=== PATIENT | male | born 1955 | race Caucasian/White ===

== ENCOUNTER 2021-12-08 11:05 | Emergency (ER) | payer OTHER ==
[~2021-12-08] VITALS: Ht 175.3 cm; Wt 65.8 kg
[~2021-12-08 11:05] MED LIST: AMIO200 PO; ASPI81CH; ASPI81CH PO; Crestor20 MG; DOCU100 PO; FURO40 PO; HYDR1TAB94 PO; Humalog100 UNIT/3; INSDET100; KELP150 MC1 PO; LEVO750 PO; METF500 PO; METO25ER PO; POTCHL20ER PO; Pravachol40 MG PO; ROSU5; SACC250C PO; UNKNOWN B/P MED
[2021-12-08 12:14] LABS: BASOPHILS ABSOLUTE AUTO 0.03 K/mm3 (0.00-0.23); BASOPHILS PERCENT AUTO 0 % (0-2); EOSINOPHILS ABSOLUTE AUTO 0.04 K/mm3 (0.00-0.68); EOSINOPHILS PERCENT AUTO 0 % (0-6); Hematocrit 46.7 % (37.0-53.0); Hemoglobin 16.4 g/dL (13.5-17.5); IMMATURE GRAN ABSOLUTE AUTO 0.03 K/mm3 (0.00-0.10); IMMATURE GRAN PERCENT AUTO 0 % (0-1); LYMPHOCYTES ABSOLUTE AUTO 1.71 K/mm3 (0.84-5.20); LYMPHOCYTES PERCENT AUTO 14 % (21-46); MONOCYTES PERCENT AUTO 6 % (4-13); Mean Corpuscular HGB 29.7 pg (26.0-34.0); Mean Corpuscular HGB Conc 35.1 g/dL (31.5-36.5); Mean Corpuscular Volume 85 fL (80-100); Mean Platelet Volume 9.5 fL (9.1-12.4); NEUTROPHILS ABSOLUTE AUTO 9.38 K/mm3 (1.96-9.15); NEUTROPHILS PERCENT AUTO 79 % (41-73); Platelet Count 207 K/mm3 (150-400); RDW Standard Deviation 37.3 fL (35.1-46.3); Red Blood Cell Count 5.52 M/mm3 (4.30-5.90); White Blood Cell Count 11.89 K/mm3 (4.00-11.30)
[2021-12-08 12:35] LABS: Alanine Aminotransfer (ALT/SGP 18 U/L (12-78); Albumin, Blood 3.7 g/dL (3.4-5.0); Alk Phos 98 U/L (50-136); Anion Gap 8 mmol/L (6-16); Aspartate Aminotrans (AST/SGOT 9 U/L (12-37); Bilirubin, Total 0.9 mg/dL (0.1-1.0); Blood Urea Nitrogen 26 mg/dL (8-24); Bun/Creatinine Ratio 13.7 (12.0-20.0); CO2, Blood 28 mmol/L (21-32); Calcium, Blood 9.3 mg/dL (8.5-10.1); Chloride, Blood 98 mmol/L (98-108); Globulin, Blood 3.7 g/dL (2.2-4.0); Glomerular Filtration Rate 36 (60-); Glucose, Blood 441 mg/dL (70-99); Potassium, Blood 4.8 mmol/L (3.5-5.5); Sodium, Blood 134 mmol/L (136-145); Total Protein, Blood 7.4 g/dL (6.4-8.2); Troponin I <0.015 ng/mL (0.000-0.040)
[2021-12-08 15:13] LABS: Source, Urine Clean Catch
[2021-12-08 15:16] LABS: Appearance, Urine Clear (Clear); Bilirubin, Urine Neg (Neg); Blood, Urine 2+ (Neg); Color, Urine Yellow (P-Yellow); Glucose Qualitative, Urine 4+ (Neg); Ketones, Urine 3+ (Neg); Leukocyte Esterase, Urine Neg (Neg); Nitrite, Urine Neg (Neg); Protein, Urine Neg (Neg); Specific Gravity, Urine 1.015 (1.003-1.022); Urobilinogen, Urine NORM (Normal)
[2021-12-08 15:27] LABS: White Blood Cells, Urine Rare /hpf (0-5)
[2021-12-08 15:28] LABS: Bacteria Rare /hpf; Squamous Epithelial Cells Not Seen /hpf (Few)
[2021-12-08 16:20] LABS: Bun/Creatinine Ratio 15.7 (12.0-20.0); Calcium, Blood 8.7 mg/dL (8.5-10.1); Creatinine, Blood 1.53 mg/dL (0.60-1.20); Potassium, Blood 4.5 mmol/L (3.5-5.5)
[2021-12-08] MEDS ORDERED: Glucotrol Xl5 MG PO (17:02)
== END 2021-12-08 18:37 | disposition home or self-care (01) ==
LOC: ER 11:05
PROVIDERS: Physician Assistant
DX: N17.9 Acute kidney failure, unspecified (principal); R33.9 Retention of urine, unspecified; E11.9 Type 2 diabetes mellitus without complications; Z79.4 Long term (current) use of insulin
CPT/HCPCS: 36415; 51702; 71046; 74176; 80048; 80053; 81001; 83690; 83880; 84484; 85025; 93005; 93010; J2405; J7120

== ENCOUNTER 2022-01-16 22:08 | Emergency (ER) | payer OTHER ==
[~2022-01-16] VITALS: Ht 172.7 cm; Wt 65.8 kg
[~2022-01-16 22:08] MED LIST changes: +CEPH500 PO; +GLIP5ER PO; +Glucotrol Xl5 MG PO
[2022-01-16] MEDS ORDERED: TAMSULOSIN HCL0.4 M1 PO (22:18)
[2022-01-16 23:17] LABS: Source, Urine Clean Catch
[2022-01-16 23:19] LABS: Bilirubin, Urine Neg (Neg); Blood, Urine 1+ (Neg); Glucose Qualitative, Urine 4+ (Neg); Ketones, Urine Neg (Neg); Leukocyte Esterase, Urine 3+ (Neg); Nitrite, Urine Neg (Neg); Protein, Urine 1+ (Neg); Specific Gravity, Urine 1.015 (1.003-1.022); Urobilinogen, Urine NORM (Normal)
[2022-01-16 23:28] LABS: Appearance, Urine Hazy (Clear); Color, Urine Yellow (P-Yellow); Red Blood Cells, Urine 0-2 /hpf (0-2); Squamous Epithelial Cells Not Seen /hpf (Few); White Blood Cells, Urine TNTC /hpf (0-5)
[2022-01-16 23:29] LABS: Bacteria Few /hpf; Yeast/Fungi Urine Few /hpf
[2022-01-16] MEDS ORDERED: Diflucan200 MG PO (23:57)
== END 2022-01-17 00:20 | disposition home or self-care (01) ==
LOC: ER 22:08
PROVIDERS: Physician Assistant
DX: T83.098A Other mechanical complication of other urinary catheter, initial encounter (principal); B37.41 Candidal cystitis and urethritis; R33.9 Retention of urine, unspecified; E11.9 Type 2 diabetes mellitus without complications; Z79.84 Long term (current) use of oral hypoglycemic drugs
CPT/HCPCS: 81001; 87086; 87106; 99283; A9270

== ENCOUNTER 2022-03-20 16:04 | Emergency (ER) | payer OTHER ==
[~2022-03-20] VITALS: Ht 170.2 cm; Wt 65.8 kg
[~2022-03-20 16:04] MED LIST changes: +Diflucan200 MG PO; +TAMSULOSIN HCL0.4 M1 PO
[2022-03-20 17:31] LABS: Source, Urine Foley catheter
[2022-03-20 17:38] LABS: Appearance, Urine Hazy (Clear); Bilirubin, Urine Neg (Neg); Blood, Urine 1+ (Neg); Color, Urine Yellow (P-Yellow); Glucose Qualitative, Urine 4+ (Neg); Ketones, Urine Neg (Neg); Leukocyte Esterase, Urine 3+ (Neg); Nitrite, Urine Pos (Neg); Protein, Urine 1+ (Neg); Urobilinogen, Urine NORM (Normal)
[2022-03-20] MEDS ORDERED: CEPH500 PO (18:13)
[2022-03-20 18:16] LABS: Bacteria Many /hpf; Red Blood Cells, Urine 0-2 /hpf (0-2); Squamous Epithelial Cells Not Seen /hpf (Few); White Blood Cells, Urine 50-100 /hpf (0-5); Yeast/Fungi Urine Many /hpf
[2022-03-20] MEDS ORDERED: Cipro250 MG PO (18:26)
[2022-03-20] MEDS ORDERED: Diflucan100 MG PO (18:45)
== END 2022-03-20 19:23 | disposition home or self-care (01) ==
LOC: ER 16:04
PROVIDERS: Physician Assistant
DX: T83.098A Other mechanical complication of other urinary catheter, initial encounter (principal); E11.9 Type 2 diabetes mellitus without complications; Z79.84 Long term (current) use of oral hypoglycemic drugs; Z79.899 Other long term (current) drug therapy; Z95.1 Presence of aortocoronary bypass graft; Y83.9 Surgical procedure, unspecified as the cause of abnormal reaction of the patient, or of later complication, without mention of misadventure at the time of the procedure
CPT/HCPCS: 51702; 51798; 81001; A9270

== ENCOUNTER 2022-04-29 16:50 | Emergency (ER) | payer OTHER ==
[~2022-04-29] VITALS: Ht 170.2 cm; Wt 67.1 kg
[~2022-04-29 16:50] MED LIST changes: +Cipro250 MG PO; +Diflucan100 MG PO
== END 2022-04-29 20:36 | disposition home or self-care (01) ==
LOC: ER 16:50
DX: T83.091A Other mechanical complication of indwelling urethral catheter, initial encounter (principal); E11.9 Type 2 diabetes mellitus without complications; Y84.6 Urinary catheterization as the cause of abnormal reaction of the patient, or of later complication, without mention of misadventure at the time of the procedure; Z79.899 Other long term (current) drug therapy; Z95.1 Presence of aortocoronary bypass graft
CPT/HCPCS: 51700; 99283-25

== ENCOUNTER 2022-05-04 03:02 | Emergency (ER) | payer OTHER ==
[~2022-05-04] VITALS: Ht 170.2 cm; Wt 67.1 kg
[2022-05-04 06:39] LABS: Source, Urine Foley catheter
[2022-05-04 06:53] LABS: Appearance, Urine Cloudy (Clear); Bilirubin, Urine Neg (Neg); Blood, Urine 3+ (Neg); Color, Urine Yellow (P-Yellow); Glucose Qualitative, Urine 4+ (Neg); Ketones, Urine Neg (Neg); Leukocyte Esterase, Urine 3+ (Neg); Nitrite, Urine Neg (Neg); Protein, Urine 3+ (Neg); Urobilinogen, Urine NORM (Normal)
[2022-05-04 07:02] LABS: Bacteria Few /hpf; Red Blood Cells, Urine TNTC /hpf (0-2); Squamous Epithelial Cells Rare /hpf (Few); White Blood Cells, Urine TNTC /hpf (0-5)
[2022-05-04] MEDS ORDERED: CEFP200 PO (07:11)
== END 2022-05-04 07:34 | disposition home or self-care (01) ==
LOC: ER 03:02
PROVIDERS: Emergency Medicine
DX: T83.091A Other mechanical complication of indwelling urethral catheter, initial encounter (principal); N39.0 Urinary tract infection, site not specified; E11.9 Type 2 diabetes mellitus without complications; Z79.899 Other long term (current) drug therapy; Z79.84 Long term (current) use of oral hypoglycemic drugs; Z95.1 Presence of aortocoronary bypass graft; Y84.8 Other medical procedures as the cause of abnormal reaction of the patient, or of later complication, without mention of misadventure at the time of the procedure
CPT/HCPCS: 51702; 51798; 81001

== ENCOUNTER 2022-05-10 17:02 | Emergency (ER) | payer OTHER ==
[~2022-05-10] VITALS: Ht 170.2 cm; Wt 67.1 kg
[~2022-05-10 17:02] MED LIST changes: +CEFP200 PO
== END 2022-05-10 20:49 | disposition home or self-care (01) ==
LOC: ER 17:02
DX: R33.9 Retention of urine, unspecified (principal); N39.0 Urinary tract infection, site not specified; E11.9 Type 2 diabetes mellitus without complications; Z79.84 Long term (current) use of oral hypoglycemic drugs; Z79.899 Other long term (current) drug therapy; Z95.1 Presence of aortocoronary bypass graft
CPT/HCPCS: 51798

== ENCOUNTER 2022-05-16 17:34 | Emergency (ER) | payer OTHER ==
[~2022-05-16] VITALS: Ht 170.2 cm; Wt 67.1 kg
[2022-05-16] MEDS ORDERED: GLIP5 PO (18:44)
[2022-05-16 18:56] LABS: Source, Urine Foley catheter
[2022-05-16 18:59] LABS: Appearance, Urine Turbid (Clear); Bilirubin, Urine Neg (Neg); Blood, Urine 3+ (Neg); Color, Urine Yellow (P-Yellow); Glucose Qualitative, Urine 4+ (Neg); Ketones, Urine 1+ (Neg); Leukocyte Esterase, Urine 3+ (Neg); Nitrite, Urine Neg (Neg); Protein, Urine 3+ (Neg); Urobilinogen, Urine NORM (Normal)
[2022-05-16 19:08] LABS: Bacteria Mod /hpf; Red Blood Cells, Urine TNTC /hpf (0-2); Squamous Epithelial Cells Rare /hpf (Few); White Blood Cells, Urine TNTC /hpf (0-5)
[2022-05-16 19:09] LABS: Yeast/Fungi Urine Many /hpf
[2022-05-16 19:10] LABS: Hyaline Casts 0-2 /lpf (0-2); RBC Cast 0-2 /lpf (0)
== END 2022-05-16 18:50 | disposition home or self-care (01) ==
LOC: ER 17:34
PROVIDERS: Emergency Medicine
DX: T83.091A Other mechanical complication of indwelling urethral catheter, initial encounter (principal); Y73.8 Miscellaneous gastroenterology and urology devices associated with adverse incidents, not elsewhere classified; R33.8 Other retention of urine; E11.9 Type 2 diabetes mellitus without complications; Z79.84 Long term (current) use of oral hypoglycemic drugs; Z79.899 Other long term (current) drug therapy
CPT/HCPCS: 81001

== ENCOUNTER 2022-05-21 21:09 | Emergency (ER) | payer OTHER ==
[~2022-05-21] VITALS: Ht 170.2 cm; Wt 67.1 kg
[~2022-05-21 21:09] MED LIST changes: +GLIP5 PO
[2022-05-21 22:39] LABS: Source, Urine Foley catheter
[2022-05-21 22:42] LABS: Bilirubin, Urine Neg (Neg); Blood, Urine 2+ (Neg); Glucose Qualitative, Urine 4+ (Neg); Ketones, Urine Neg (Neg); Leukocyte Esterase, Urine 3+ (Neg); Nitrite, Urine Neg (Neg); Protein, Urine 1+ (Neg); Specific Gravity, Urine 1.015 (1.003-1.022); Urobilinogen, Urine NORM (Normal)
[2022-05-21 22:52] LABS: Appearance, Urine Hazy (Clear); Color, Urine Yellow (P-Yellow); Squamous Epithelial Cells Not Seen /hpf (Few); White Blood Cells, Urine TNTC /hpf (0-5)
[2022-05-21 22:53] LABS: Bacteria Few /hpf; Yeast/Fungi Urine Few /hpf
== END 2022-05-21 23:52 | disposition home or self-care (01) ==
LOC: ER 21:09
PROVIDERS: Student in an Organized Health Care Education/Training Program
DX: T83.091A Other mechanical complication of indwelling urethral catheter, initial encounter (principal); E11.9 Type 2 diabetes mellitus without complications; Z79.899 Other long term (current) drug therapy; Z79.84 Long term (current) use of oral hypoglycemic drugs; Z95.1 Presence of aortocoronary bypass graft; Y73.1 Therapeutic (nonsurgical) and rehabilitative gastroenterology and urology devices associated with adverse incidents
CPT/HCPCS: 51702; 51798; 81001

== ENCOUNTER 2022-11-28 03:08 | Day surgery (SDC) | payer OTHER | END 2022-11-28 23:06 | disposition home or self-care (01) | LOC: WOUND 03:08 | DX: E11.621 Type 2 diabetes mellitus with foot ulcer (principal); L97.412 Non-pressure chronic ulcer of right heel and midfoot with fat layer exposed; L97.512 Non-pressure chronic ulcer of other part of right foot with fat layer exposed; E11.21 Type 2 diabetes mellitus with diabetic nephropathy; E11.51 Type 2 diabetes mellitus with diabetic peripheral angiopathy without gangrene; E11.59 Type 2 diabetes mellitus with other circulatory complications; I25.10 Atherosclerotic heart disease of native coronary artery without angina pectoris ==

== ENCOUNTER 2023-01-09 00:57 | Day surgery (SDC) | payer OTHER | END 2023-01-09 23:37 | disposition home or self-care (01) | LOC: WOUND 00:57 | DX: E11.622 Type 2 diabetes mellitus with other skin ulcer (principal); L97.922 Non-pressure chronic ulcer of unspecified part of left lower leg with fat layer exposed; E11.621 Type 2 diabetes mellitus with foot ulcer; E11.59 Type 2 diabetes mellitus with other circulatory complications; E11.51 Type 2 diabetes mellitus with diabetic peripheral angiopathy without gangrene; E11.21 Type 2 diabetes mellitus with diabetic nephropathy; I25.10 Atherosclerotic heart disease of native coronary artery without angina pectoris | CPT/HCPCS: G0463 ==

== ENCOUNTER 2023-01-30 00:23 | Day surgery (SDC) | payer OTHER | END 2023-01-30 23:11 | disposition home or self-care (01) | LOC: WOUND 00:23 | DX: E11.621 Type 2 diabetes mellitus with foot ulcer (principal); L97.412 Non-pressure chronic ulcer of right heel and midfoot with fat layer exposed; E11.622 Type 2 diabetes mellitus with other skin ulcer; E11.59 Type 2 diabetes mellitus with other circulatory complications; E11.51 Type 2 diabetes mellitus with diabetic peripheral angiopathy without gangrene; E11.21 Type 2 diabetes mellitus with diabetic nephropathy; I25.10 Atherosclerotic heart disease of native coronary artery without angina pectoris | CPT/HCPCS: A9270; G0463 ==

== ENCOUNTER 2023-02-13 00:34 | Day surgery (SDC) | payer OTHER | END 2023-02-13 22:42 | disposition home or self-care (01) | LOC: WOUND 00:34 | DX: E11.621 Type 2 diabetes mellitus with foot ulcer (principal); L97.412 Non-pressure chronic ulcer of right heel and midfoot with fat layer exposed; E11.622 Type 2 diabetes mellitus with other skin ulcer; E11.59 Type 2 diabetes mellitus with other circulatory complications; E11.51 Type 2 diabetes mellitus with diabetic peripheral angiopathy without gangrene; E11.21 Type 2 diabetes mellitus with diabetic nephropathy; E11.40 Type 2 diabetes mellitus with diabetic neuropathy, unspecified; I25.10 Atherosclerotic heart disease of native coronary artery without angina pectoris | CPT/HCPCS: G0463 ==

== ENCOUNTER 2023-02-22 09:16 | Day surgery (SDC) | payer OTHER | END 2023-02-22 22:49 | disposition home or self-care (01) | LOC: WOUND 09:16 | DX: E11.621 Type 2 diabetes mellitus with foot ulcer (principal); I25.10 Atherosclerotic heart disease of native coronary artery without angina pectoris; L97.512 Non-pressure chronic ulcer of other part of right foot with fat layer exposed; E11.51 Type 2 diabetes mellitus with diabetic peripheral angiopathy without gangrene; E11.40 Type 2 diabetes mellitus with diabetic neuropathy, unspecified | CPT/HCPCS: G0463 ==

== ENCOUNTER 2023-02-28 02:08 | Day surgery (SDC) | payer OTHER | END 2023-02-28 22:47 | disposition home or self-care (01) | LOC: WOUND 02:08 | DX: E11.621 Type 2 diabetes mellitus with foot ulcer (principal); E11.622 Type 2 diabetes mellitus with other skin ulcer; E11.40 Type 2 diabetes mellitus with diabetic neuropathy, unspecified; E11.51 Type 2 diabetes mellitus with diabetic peripheral angiopathy without gangrene; L97.412 Non-pressure chronic ulcer of right heel and midfoot with fat layer exposed ==

== ENCOUNTER 2023-03-02 01:06 | Day surgery (SDC) | payer OTHER | END 2023-03-02 22:41 | disposition home or self-care (01) | LOC: WOUND 01:06 | DX: S91.301A Unspecified open wound, right foot, initial encounter (principal); X58.XXXA Exposure to other specified factors, initial encounter; E11.622 Type 2 diabetes mellitus with other skin ulcer; E11.621 Type 2 diabetes mellitus with foot ulcer; E11.59 Type 2 diabetes mellitus with other circulatory complications; E11.51 Type 2 diabetes mellitus with diabetic peripheral angiopathy without gangrene; E11.21 Type 2 diabetes mellitus with diabetic nephropathy; I25.10 Atherosclerotic heart disease of native coronary artery without angina pectoris ==

== ENCOUNTER 2023-03-09 02:48 | Day surgery (SDC) | payer OTHER | END 2023-03-09 23:20 | disposition home or self-care (01) | LOC: WOUND 02:48 | DX: E11.621 Type 2 diabetes mellitus with foot ulcer (principal); L97.412 Non-pressure chronic ulcer of right heel and midfoot with fat layer exposed; E11.622 Type 2 diabetes mellitus with other skin ulcer; E11.59 Type 2 diabetes mellitus with other circulatory complications; E11.21 Type 2 diabetes mellitus with diabetic nephropathy; E11.51 Type 2 diabetes mellitus with diabetic peripheral angiopathy without gangrene; I25.10 Atherosclerotic heart disease of native coronary artery without angina pectoris ==

== ENCOUNTER 2023-03-15 03:03 | Day surgery (SDC) | payer OTHER | END 2023-03-15 22:41 | disposition home or self-care (01) | LOC: WOUND 03:03 | DX: S91.302A Unspecified open wound, left foot, initial encounter (principal); X58.XXXA Exposure to other specified factors, initial encounter; E11.621 Type 2 diabetes mellitus with foot ulcer; E11.622 Type 2 diabetes mellitus with other skin ulcer; E11.59 Type 2 diabetes mellitus with other circulatory complications; E11.21 Type 2 diabetes mellitus with diabetic nephropathy; E11.51 Type 2 diabetes mellitus with diabetic peripheral angiopathy without gangrene; I25.10 Atherosclerotic heart disease of native coronary artery without angina pectoris ==

== ENCOUNTER 2023-03-20 02:06 | Day surgery (SDC) | payer OTHER | END 2023-03-20 22:50 | disposition home or self-care (01) | LOC: WOUND 02:06 | DX: S99.821A Other specified injuries of right foot, initial encounter (principal); E11.621 Type 2 diabetes mellitus with foot ulcer; E11.622 Type 2 diabetes mellitus with other skin ulcer; E11.59 Type 2 diabetes mellitus with other circulatory complications; E11.21 Type 2 diabetes mellitus with diabetic nephropathy; I73.9 Peripheral vascular disease, unspecified; X58.XXXA Exposure to other specified factors, initial encounter | CPT/HCPCS: G0463 ==

== ENCOUNTER 2023-04-03 01:07 | Day surgery (SDC) | payer OTHER ==
[~2023-04-03 01:07] MED LIST changes: +ASPIRIN REGIMEN81 MG PO; +ATOR40TA PO; +FUROSEMIDE20 MG PO; +METOPROLOL SUCC25 MG PO; +Potassium Chlo20 ME1 PO
== END 2023-04-03 22:52 | disposition home or self-care (01) ==
LOC: WOUND 01:07
DX: E11.621 Type 2 diabetes mellitus with foot ulcer (principal); L97.512 Non-pressure chronic ulcer of other part of right foot with fat layer exposed; E11.622 Type 2 diabetes mellitus with other skin ulcer; E11.59 Type 2 diabetes mellitus with other circulatory complications; E11.21 Type 2 diabetes mellitus with diabetic nephropathy; I73.9 Peripheral vascular disease, unspecified
CPT/HCPCS: G0463

== ENCOUNTER 2023-04-12 03:50 | Day surgery (SDC) | payer OTHER | END 2023-04-12 22:57 | disposition home or self-care (01) | LOC: WOUND 03:50 | DX: E11.621 Type 2 diabetes mellitus with foot ulcer (principal); L97.512 Non-pressure chronic ulcer of other part of right foot with fat layer exposed; E11.622 Type 2 diabetes mellitus with other skin ulcer; E11.59 Type 2 diabetes mellitus with other circulatory complications; E11.21 Type 2 diabetes mellitus with diabetic nephropathy; E11.51 Type 2 diabetes mellitus with diabetic peripheral angiopathy without gangrene; I25.10 Atherosclerotic heart disease of native coronary artery without angina pectoris | CPT/HCPCS: G0463 ==

== ENCOUNTER 2023-04-19 03:21 | Day surgery (SDC) | payer OTHER | END 2023-04-19 22:45 | disposition home or self-care (01) | LOC: WOUND 03:21 | DX: E11.621 Type 2 diabetes mellitus with foot ulcer (principal); L97.512 Non-pressure chronic ulcer of other part of right foot with fat layer exposed; E11.40 Type 2 diabetes mellitus with diabetic neuropathy, unspecified; I25.10 Atherosclerotic heart disease of native coronary artery without angina pectoris; E11.51 Type 2 diabetes mellitus with diabetic peripheral angiopathy without gangrene; E11.21 Type 2 diabetes mellitus with diabetic nephropathy ==

== ENCOUNTER 2023-04-26 03:13 | Day surgery (SDC) | payer OTHER | END 2023-04-26 22:53 | disposition home or self-care (01) | LOC: WOUND 03:13 | DX: E11.621 Type 2 diabetes mellitus with foot ulcer (principal); E11.622 Type 2 diabetes mellitus with other skin ulcer; E11.59 Type 2 diabetes mellitus with other circulatory complications; E11.21 Type 2 diabetes mellitus with diabetic nephropathy; E11.51 Type 2 diabetes mellitus with diabetic peripheral angiopathy without gangrene; I25.10 Atherosclerotic heart disease of native coronary artery without angina pectoris | CPT/HCPCS: G0463 ==

== ENCOUNTER → 2023-09-25 | Outpatient (CLI) | payer OTHER | LOC: LAB 10:30 → LAB SHORT 10:30 | DX: R33.9 Retention of urine, unspecified (principal) | CPT/HCPCS: 87086; 87106 ==

== ENCOUNTER 2024-07-31 14:23 | Emergency (ER) | payer OTHER ==
[~2024-07-31] VITALS: Ht 170.2 cm; Wt 69.4 kg
[~2024-07-31 14:23] MED LIST changes: -ASPIRIN REGIMEN81 MG PO; +MULTIPLE VITAM1 EACH PO; +POTASSIUM CHLORIDE PO; -Potassium Chlo20 ME1 PO
[2024-07-31] MEDS ORDERED: Miconazole Nitrate 2% 85 GM PWD TOP ONE (15:30)
[2024-07-31] MEDS ORDERED: NYSTOP15 GM TOP (15:30)
[2024-07-31 16:18] VITALS: BP 131/77
== END 2024-07-31 16:19 | disposition home or self-care (01) ==
LOC: ER 14:23
DX: L98.491 Non-pressure chronic ulcer of skin of other sites limited to breakdown of skin (principal); E11.9 Type 2 diabetes mellitus without complications; Z72.821 Inadequate sleep hygiene; Z79.82 Long term (current) use of aspirin; Z79.899 Other long term (current) drug therapy
CPT/HCPCS: 99283; A9270

== ENCOUNTER → 2024-08-21 | Outpatient (CLI) | payer OTHER ==
[~2024-08-21] MED LIST changes: +NYSTOP15 GM TOP
== END ==
LOC: LAB SHORT 18:59 → LAB 18:59
DX: E11.621 Type 2 diabetes mellitus with foot ulcer (principal)
CPT/HCPCS: 87070; 87077; 87186; 87205

== ENCOUNTER 2024-08-26 02:40 | Day surgery (SDC) | payer OTHER | END 2024-08-26 23:00 | LOC: WOUND 02:40 | DX: E11.621 Type 2 diabetes mellitus with foot ulcer (principal); L97.512 Non-pressure chronic ulcer of other part of right foot with fat layer exposed; L97.521 Non-pressure chronic ulcer of other part of left foot limited to breakdown of skin; L03.116 Cellulitis of left lower limb; E11.40 Type 2 diabetes mellitus with diabetic neuropathy, unspecified; I25.10 Atherosclerotic heart disease of native coronary artery without angina pectoris | CPT/HCPCS: A6213; G0463 ==

== ENCOUNTER 2024-09-02 02:59 | Day surgery (SDC) | payer OTHER | END 2024-09-02 23:00 | disposition home or self-care (01) | LOC: WOUND 02:59 | DX: E11.621 Type 2 diabetes mellitus with foot ulcer (principal); L97.512 Non-pressure chronic ulcer of other part of right foot with fat layer exposed; L97.529 Non-pressure chronic ulcer of other part of left foot with unspecified severity; E11.51 Type 2 diabetes mellitus with diabetic peripheral angiopathy without gangrene; I25.10 Atherosclerotic heart disease of native coronary artery without angina pectoris | CPT/HCPCS: A6213; G0463 ==

== ENCOUNTER 2024-09-17 02:31 | Day surgery (SDC) | payer OTHER | END 2024-09-17 23:00 | disposition home or self-care (01) | LOC: WOUND 02:31 | DX: E11.621 Type 2 diabetes mellitus with foot ulcer (principal); L97.512 Non-pressure chronic ulcer of other part of right foot with fat layer exposed; L97.522 Non-pressure chronic ulcer of other part of left foot with fat layer exposed; E11.40 Type 2 diabetes mellitus with diabetic neuropathy, unspecified; I25.10 Atherosclerotic heart disease of native coronary artery without angina pectoris | CPT/HCPCS: A6213; G0463 ==

== ENCOUNTER 2024-09-29 00:41 | Emergency (ER) | payer OTHER ==
[~2024-09-29] VITALS: Ht 170.2 cm; Wt 63.5 kg
[2024-09-29 00:51] VITALS: BP 137/82
[2024-09-29] MEDS ORDERED: CEPH500 PO (17:11)
== END 2024-09-29 02:19 | disposition left against medical advice (07) ==
LOC: ER 00:41
DX: R55 Syncope and collapse (principal); L97.529 Non-pressure chronic ulcer of other part of left foot with unspecified severity; E11.9 Type 2 diabetes mellitus without complications; E78.5 Hyperlipidemia, unspecified; N17.9 Acute kidney failure, unspecified; R63.0 Anorexia; K21.9 Gastro-esophageal reflux disease without esophagitis; Z96.0 Presence of urogenital implants; Z79.82 Long term (current) use of aspirin; Z79.899 Other long term (current) drug therapy
CPT/HCPCS: 36415; 51702; 80053; 81001; 83605; 85025; 87086; 93005; 93010; 96365; 96365-59; 99284-25; J0696; J7030

== ENCOUNTER 2024-09-29 10:31 | Emergency (ER) | payer OTHER ==
[~2024-09-29] VITALS: Ht 182.9 cm; Wt 72.6 kg
[2024-09-29 11:27] LABS: BASOPHILS ABSOLUTE AUTO 0.02 K/mm3 (0.00-0.23); BASOPHILS PERCENT AUTO 0 % (0-2); EOSINOPHILS ABSOLUTE AUTO 0.02 K/mm3 (0.00-0.68); EOSINOPHILS PERCENT AUTO 0 % (0-6); Hematocrit 40.8 % (37.0-53.0); Hemoglobin 13.6 g/dL (13.5-17.5); IMMATURE GRAN ABSOLUTE AUTO 0.04 K/mm3 (0.00-0.10); IMMATURE GRAN PERCENT AUTO 0 % (0-1); LYMPHOCYTES ABSOLUTE AUTO 2.14 K/mm3 (0.84-5.20); LYMPHOCYTES PERCENT AUTO 16 % (21-46); MONOCYTES ABSOLUTE AUTO 0.43 K/mm3 (0.16-1.47); MONOCYTES PERCENT AUTO 3 % (4-13); Mean Corpuscular HGB 28.6 pg (26.0-34.0); Mean Corpuscular HGB Conc 33.3 g/dL (31.5-36.5); Mean Corpuscular Volume 86 fL (80-100); Mean Platelet Volume 8.8 fL (9.1-12.4); NEUTROPHILS ABSOLUTE AUTO 10.57 K/mm3 (1.96-9.15); NEUTROPHILS PERCENT AUTO 80 % (41-73); Platelet Count 325 K/mm3 (150-400); RDW Coefficient Variation 13.5 % (11.7-14.2); RDW Standard Deviation 42.5 fL (35.1-46.3); Red Blood Cell Count 4.75 M/mm3 (4.30-5.90); White Blood Cell Count 13.22 K/mm3 (4.00-11.30)
[2024-09-29 12:11] LABS: Albumin, Blood 3.1 g/dL (3.4-5.0); Albumin/Globulin Ratio 0.7 (0.8-1.8); Bilirubin, Total 0.5 mg/dL (0.1-1.0); Bun/Creatinine Ratio 23.5 (12.0-20.0); Calcium, Blood 8.8 mg/dL (8.5-10.1); Creatinine, Blood 1.32 mg/dL (0.60-1.20); Globulin, Blood 4.4 g/dL (2.2-4.0); Potassium, Blood 4.3 mmol/L (3.5-5.5); Total Protein, Blood 7.5 g/dL (6.4-8.2)
[2024-09-29] MEDS ORDERED: Lidocaine 2% Jelly Uro-Jet TOP ONE (14:15)
[2024-09-29 14:28] LABS: Source, Urine Foley catheter
[2024-09-29 14:32] LABS: Appearance, Urine Turbid (Clear); Bilirubin, Urine Neg (Neg); Blood, Urine 5+ (Neg); Color, Urine Brown (P-Yellow); Glucose Qualitative, Urine Neg (Neg); Ketones, Urine 1+ (Neg); Leukocyte Esterase, Urine 3+ (Neg); Nitrite, Urine Neg (Neg); Protein, Urine 3+ (Neg); Specific Gravity, Urine 1.025 (1.003-1.022); Urobilinogen, Urine NORM (Normal)
[2024-09-29 15:02] LABS: Red Blood Cells, Urine 50-100 /hpf (0-2); White Blood Cells, Urine TNTC /hpf (0-5)
[2024-09-29 15:03] LABS: Bacteria Many /hpf; Squamous Epithelial Cells Not Seen /hpf (Few); Uric Acid Crystals Mod /hpf
[2024-09-29] MEDS ORDERED: NS 1,000 ML IV SCH (15:40)
[2024-09-29] MEDS ORDERED: CefTRIAXone Sodium 1,000 MG in NS 50 ML IV ONE (15:40)
[2024-09-29] MEDS ORDERED: CEPH500 PO (17:11)
[2024-09-29 17:41] VITALS: BP 131/72
== END 2024-09-29 17:42 | disposition home or self-care (01) ==
LOC: ER 10:31
PROVIDERS: Physician Assistant
DX: N39.0 Urinary tract infection, site not specified (principal); N17.9 Acute kidney failure, unspecified; E11.9 Type 2 diabetes mellitus without complications; Z79.82 Long term (current) use of aspirin; Z79.899 Other long term (current) drug therapy
CPT/HCPCS: 36415; 51702; 80053; 81001; 83605; 85025; 87040; 87086; 96365; 96365-59; 99284-25; J0696; J7030

== ENCOUNTER 2024-10-07 02:46 | Day surgery (SDC) | payer OTHER | END 2024-10-07 23:04 | disposition home or self-care (01) | LOC: WOUND 02:46 | DX: E11.621 Type 2 diabetes mellitus with foot ulcer (principal); L97.522 Non-pressure chronic ulcer of other part of left foot with fat layer exposed; L97.512 Non-pressure chronic ulcer of other part of right foot with fat layer exposed; E11.40 Type 2 diabetes mellitus with diabetic neuropathy, unspecified; I25.10 Atherosclerotic heart disease of native coronary artery without angina pectoris | CPT/HCPCS: A6213 ==

== ENCOUNTER 2024-10-24 01:55 | Day surgery (SDC) | payer OTHER ==
[2024-10-24] MEDS ORDERED: Lidocaine HCl 4% Cream 5 GM ONE (12:44)
== END 2024-10-24 23:00 | disposition home or self-care (01) ==
LOC: WOUND 01:55
DX: E11.621 Type 2 diabetes mellitus with foot ulcer (principal); L97.522 Non-pressure chronic ulcer of other part of left foot with fat layer exposed; E11.40 Type 2 diabetes mellitus with diabetic neuropathy, unspecified; I25.10 Atherosclerotic heart disease of native coronary artery without angina pectoris
CPT/HCPCS: A6213; A9270

== ENCOUNTER 2024-10-31 05:38 | Day surgery (SDC) | payer OTHER ==
[2024-10-31] MEDS ORDERED: Lidocaine HCl 4% Cream 5 GM ONE (13:15)
== END 2024-10-31 23:00 | disposition home or self-care (01) ==
LOC: WOUND 05:38
DX: E11.621 Type 2 diabetes mellitus with foot ulcer (principal); L97.525 Non-pressure chronic ulcer of other part of left foot with muscle involvement without evidence of necrosis; E11.40 Type 2 diabetes mellitus with diabetic neuropathy, unspecified; I25.10 Atherosclerotic heart disease of native coronary artery without angina pectoris
CPT/HCPCS: A6213; A9270; G0463

== ENCOUNTER 2024-11-18 08:32 | Day surgery (SDC) | payer OTHER ==
[2024-11-18] MEDS ORDERED: Lidocaine HCl 4% Cream 5 GM ONE (15:17)
== END 2024-11-18 23:00 | disposition home or self-care (01) ==
LOC: WOUND 08:32
DX: E11.621 Type 2 diabetes mellitus with foot ulcer (principal); L97.525 Non-pressure chronic ulcer of other part of left foot with muscle involvement without evidence of necrosis; E11.40 Type 2 diabetes mellitus with diabetic neuropathy, unspecified; I25.10 Atherosclerotic heart disease of native coronary artery without angina pectoris; M89.572 Osteolysis, left ankle and foot
CPT/HCPCS: 73630; A9270; G0463

== ENCOUNTER 2024-11-25 04:50 | Day surgery (SDC) | payer OTHER | END 2024-11-25 23:00 | disposition home or self-care (01) | LOC: WOUND 04:50 | DX: E11.621 Type 2 diabetes mellitus with foot ulcer (principal); L97.526 Non-pressure chronic ulcer of other part of left foot with bone involvement without evidence of necrosis; E11.69 Type 2 diabetes mellitus with other specified complication; M86.172 Other acute osteomyelitis, left ankle and foot; E11.51 Type 2 diabetes mellitus with diabetic peripheral angiopathy without gangrene; E11.40 Type 2 diabetes mellitus with diabetic neuropathy, unspecified; I25.10 Atherosclerotic heart disease of native coronary artery without angina pectoris | CPT/HCPCS: G0463 ==

== ENCOUNTER 2024-12-06 03:33 | Day surgery (SDC) | payer OTHER | END 2024-12-06 23:00 | disposition home or self-care (01) | LOC: WOUND 03:33 | DX: E11.621 Type 2 diabetes mellitus with foot ulcer (principal); L97.524 Non-pressure chronic ulcer of other part of left foot with necrosis of bone; I25.10 Atherosclerotic heart disease of native coronary artery without angina pectoris; E11.40 Type 2 diabetes mellitus with diabetic neuropathy, unspecified; E11.51 Type 2 diabetes mellitus with diabetic peripheral angiopathy without gangrene; E11.69 Type 2 diabetes mellitus with other specified complication; M86.172 Other acute osteomyelitis, left ankle and foot | CPT/HCPCS: G0463 ==

== ENCOUNTER 2024-12-13 06:28 | Day surgery (SDC) | payer OTHER ==
[2024-12-13] MEDS ORDERED: Lidocaine HCl 4% Cream 5 GM ONE (13:20)
== END 2024-12-13 23:00 | disposition home or self-care (01) ==
LOC: WOUND 06:28
DX: E11.621 Type 2 diabetes mellitus with foot ulcer (principal); L97.526 Non-pressure chronic ulcer of other part of left foot with bone involvement without evidence of necrosis; E11.51 Type 2 diabetes mellitus with diabetic peripheral angiopathy without gangrene; E11.40 Type 2 diabetes mellitus with diabetic neuropathy, unspecified; E11.69 Type 2 diabetes mellitus with other specified complication; M86.172 Other acute osteomyelitis, left ankle and foot; I25.10 Atherosclerotic heart disease of native coronary artery without angina pectoris
CPT/HCPCS: A9270

== ENCOUNTER 2024-12-25 02:22 | Day surgery (SDC) | payer OTHER ==
[2024-12-25] MEDS ORDERED: Lidocaine HCl 4% Cream 5 GM ONE (16:10)
== END 2024-12-25 23:00 | disposition home or self-care (01) ==
LOC: WOUND 02:22
DX: E11.621 Type 2 diabetes mellitus with foot ulcer (principal); L97.524 Non-pressure chronic ulcer of other part of left foot with necrosis of bone; E11.40 Type 2 diabetes mellitus with diabetic neuropathy, unspecified; I25.10 Atherosclerotic heart disease of native coronary artery without angina pectoris; E11.69 Type 2 diabetes mellitus with other specified complication; E11.51 Type 2 diabetes mellitus with diabetic peripheral angiopathy without gangrene
CPT/HCPCS: A9270

== ENCOUNTER → 2025-01-08 | Day surgery (SDC) | payer OTHER ==
[~2025-01-08] MED LIST changes: +Lidocaine HCl 4% Cream 5 GM ONE
== END ==
LOC: WOUND 01:35
DX: E11.621 Type 2 diabetes mellitus with foot ulcer (principal); L97.526 Non-pressure chronic ulcer of other part of left foot with bone involvement without evidence of necrosis; E11.40 Type 2 diabetes mellitus with diabetic neuropathy, unspecified; E11.69 Type 2 diabetes mellitus with other specified complication; M86.172 Other acute osteomyelitis, left ankle and foot; E11.51 Type 2 diabetes mellitus with diabetic peripheral angiopathy without gangrene; I25.10 Atherosclerotic heart disease of native coronary artery without angina pectoris
CPT/HCPCS: A9270

== ENCOUNTER 2025-01-15 01:00 | Day surgery (SDC) | payer OTHER ==
[~2025-01-15 01:00] MED LIST changes: -Lidocaine HCl 4% Cream 5 GM ONE
[2025-01-15] MEDS ORDERED: Lidocaine HCl 4% Cream 5 GM ONE (14:58)
== END 2025-01-15 23:00 | disposition home or self-care (01) ==
LOC: WOUND 01:00
DX: E11.621 Type 2 diabetes mellitus with foot ulcer (principal); L97.525 Non-pressure chronic ulcer of other part of left foot with muscle involvement without evidence of necrosis; E11.40 Type 2 diabetes mellitus with diabetic neuropathy, unspecified; E11.51 Type 2 diabetes mellitus with diabetic peripheral angiopathy without gangrene; E11.69 Type 2 diabetes mellitus with other specified complication; M86.172 Other acute osteomyelitis, left ankle and foot; I25.10 Atherosclerotic heart disease of native coronary artery without angina pectoris
CPT/HCPCS: A9270

== ENCOUNTER 2025-01-29 01:54 | Day surgery (SDC) | payer OTHER | END 2025-01-29 23:00 | disposition home or self-care (01) | LOC: WOUND 01:54 | DX: E11.621 Type 2 diabetes mellitus with foot ulcer (principal); L97.522 Non-pressure chronic ulcer of other part of left foot with fat layer exposed; E11.40 Type 2 diabetes mellitus with diabetic neuropathy, unspecified; E11.69 Type 2 diabetes mellitus with other specified complication; E11.51 Type 2 diabetes mellitus with diabetic peripheral angiopathy without gangrene | CPT/HCPCS: G0463 ==

== ENCOUNTER 2025-02-12 01:31 | Day surgery (SDC) | payer OTHER | END 2025-02-12 23:00 | disposition home or self-care (01) | LOC: WOUND 01:31 | DX: E11.621 Type 2 diabetes mellitus with foot ulcer (principal); L97.522 Non-pressure chronic ulcer of other part of left foot with fat layer exposed; E11.40 Type 2 diabetes mellitus with diabetic neuropathy, unspecified; E11.51 Type 2 diabetes mellitus with diabetic peripheral angiopathy without gangrene; E11.69 Type 2 diabetes mellitus with other specified complication; M86.172 Other acute osteomyelitis, left ankle and foot | CPT/HCPCS: G0463 ==

== ENCOUNTER → 2025-02-19 | Day surgery (SDC) | payer OTHER | LOC: WOUND 03:08 | DX: E11.621 Type 2 diabetes mellitus with foot ulcer (principal); L97.522 Non-pressure chronic ulcer of other part of left foot with fat layer exposed; E11.40 Type 2 diabetes mellitus with diabetic neuropathy, unspecified; E11.69 Type 2 diabetes mellitus with other specified complication; E11.51 Type 2 diabetes mellitus with diabetic peripheral angiopathy without gangrene; M86.172 Other acute osteomyelitis, left ankle and foot | CPT/HCPCS: G0463 ==

== ENCOUNTER 2025-03-05 01:55 | Day surgery (SDC) | payer OTHER | END 2025-03-05 23:00 | disposition home or self-care (01) | LOC: WOUND 01:55 | DX: E11.621 Type 2 diabetes mellitus with foot ulcer (principal); L97.522 Non-pressure chronic ulcer of other part of left foot with fat layer exposed; E11.40 Type 2 diabetes mellitus with diabetic neuropathy, unspecified; E11.51 Type 2 diabetes mellitus with diabetic peripheral angiopathy without gangrene; M86.172 Other acute osteomyelitis, left ankle and foot; I25.10 Atherosclerotic heart disease of native coronary artery without angina pectoris | CPT/HCPCS: G0463 ==

== ENCOUNTER 2025-03-19 02:42 | Day surgery (SDC) | payer OTHER | END 2025-03-19 23:00 | disposition home or self-care (01) | LOC: WOUND 02:42 | DX: E11.621 Type 2 diabetes mellitus with foot ulcer (principal); L97.522 Non-pressure chronic ulcer of other part of left foot with fat layer exposed; E11.40 Type 2 diabetes mellitus with diabetic neuropathy, unspecified; E11.69 Type 2 diabetes mellitus with other specified complication; E11.51 Type 2 diabetes mellitus with diabetic peripheral angiopathy without gangrene; M86.172 Other acute osteomyelitis, left ankle and foot; I25.10 Atherosclerotic heart disease of native coronary artery without angina pectoris | CPT/HCPCS: G0463 ==

== ENCOUNTER → 2025-05-28 | Outpatient (CLI) | payer OTHER ==
[~2025-05-28] MED LIST changes: +OMEP20ER PO; +Potassium Chlo20 ME1 PO
== END ==
LOC: LAB SHORT 14:59 → LAB 14:59
DX: E11.621 Type 2 diabetes mellitus with foot ulcer (principal)
CPT/HCPCS: 87070; 87205

== ENCOUNTER 2025-05-29 03:21 | Observation (INO) | payer OTHER ==
[~2025-05-29] VITALS: Ht 170.2 cm; Wt 64.0 kg
[~2025-05-29 03:21] MED LIST changes: -OMEP20ER PO; -Potassium Chlo20 ME1 PO
[2025-05-29] MEDS ORDERED: NS 1,000 ML IV SCH (03:45)
[2025-05-29 03:47] LABS: BASOPHILS ABSOLUTE AUTO 0.01 K/mm3 (0.00-0.23); BASOPHILS PERCENT AUTO 0 % (0-2); EOSINOPHILS ABSOLUTE AUTO 0.02 K/mm3 (0.00-0.68); EOSINOPHILS PERCENT AUTO 0 % (0-6); Hematocrit 37.2 % (37.0-53.0); Hemoglobin 12.9 g/dL (13.5-17.5); IMMATURE GRAN ABSOLUTE AUTO 0.03 K/mm3 (0.00-0.10); IMMATURE GRAN PERCENT AUTO 0 % (0-1); LYMPHOCYTES ABSOLUTE AUTO 1.71 K/mm3 (0.84-5.20); LYMPHOCYTES PERCENT AUTO 18 % (21-46); MONOCYTES ABSOLUTE AUTO 0.73 K/mm3 (0.16-1.47); MONOCYTES PERCENT AUTO 8 % (4-13); Mean Corpuscular HGB Conc 34.7 g/dL (31.5-36.5); Mean Corpuscular Volume 83 fL (80-100); NEUTROPHILS ABSOLUTE AUTO 7.28 K/mm3 (1.96-9.15); NEUTROPHILS PERCENT AUTO 74 % (41-73); NRBC ABSOLUTE 0.00 K/mm3 (0.00-0.02); NRBC Auto 0.0 /100 WBC (0.0-0.2); Platelet Count 201 K/mm3 (150-400); RDW Coefficient Variation 13.1 % (11.7-14.2); RDW Standard Deviation 39.7 fL (35.1-46.3)
[2025-05-29 04:13] LABS: Ethanol (Alcohol), Blood, Med <3 mg/dL; Magnesium, Blood 2.2 mg/dL (1.6-2.4); Thyroid Stimulating Hormone 1.660 uIU/mL (0.360-4.800)
[2025-05-29] MEDS ORDERED: Lidocaine 2% Jelly Uro-Jet UR ONE (04:15)
[2025-05-29 04:16] LABS: Alanine Aminotransfer (ALT/SGP 31 U/L (12-78); Albumin, Blood 2.9 g/dL (3.4-5.0); Albumin/Globulin Ratio 0.7 (0.8-1.8); Anion Gap 8 mmol/L (3-11); Aspartate Aminotrans (AST/SGOT 26 U/L (12-37); Bilirubin, Total 0.3 mg/dL (0.1-1.0); Blood Urea Nitrogen 25 mg/dL (8-24); CO2, Blood 27 mmol/L (21-32); Calcium, Blood 8.5 mg/dL (8.5-10.1); Chloride, Blood 108 mmol/L (98-108); Creatinine, Blood 1.21 mg/dL (0.60-1.20); Globulin, Blood 4.4 g/dL (2.2-4.0); Glucose, Blood 46 mg/dL (70-99); Potassium, Blood 4.3 mmol/L (3.5-5.5); Sodium, Blood 139 mmol/L (136-145); Total Protein, Blood 7.3 g/dL (6.4-8.2)
[2025-05-29 04:42] LABS: Influenza A, PCR NEGATIVE (NEGATIVE); Influenza B, PCR NEGATIVE (NEGATIVE); Resp Syncytial Virus, PCR NEGATIVE (NEGATIVE)
[2025-05-29 04:47] LABS: SARS-Cov-2 (COVID-19) PCR, MMC POSITIVE (NEGATIVE)
[2025-05-29 05:06] LABS: Source, Urine Foley catheter
[2025-05-29 05:12] LABS: Bilirubin, Urine Neg (Neg); Color, Urine Red (P-Yellow); Glucose Qualitative, Urine 2+ (Neg); Ketones, Urine 1+ (Neg); Leukocyte Esterase, Urine 3+ (Neg); Protein, Urine 4+ (Neg); Specific Gravity, Urine 1.015 (1.003-1.022); Urobilinogen, Urine NORM (Normal)
[2025-05-29] MEDS ORDERED: Ondansetron HCl 2 MG / ML 2ML Vial IV PRN (05:15)
[2025-05-29 05:29] LABS: U Amphetamine Screen Not Detected; U Barbituate Screen Not Detected; U Benzodiazapine Screen Not Detected; U Buprenorphine Screen Not Detected; U Cannabinoids Screen Not Detected; U Cocaine Screen Not Detected; U Methadone Screen Not Detected; U Methamphetamine Screen Not Detected; U Opiates Screen Not Detected; U Oxycodone Screen Not Detected; U Phencyclidine Screen Not Detected
[2025-05-29 05:34] LABS: Red Blood Cells, Urine TNTC /hpf (0-2); White Blood Cells, Urine 50-100 /hpf (0-5)
[2025-05-29] MEDS ORDERED: D5W-1/2NS 1,000 ML IV SCH (06:00)
[2025-05-29 06:15] VITALS: BP 140/79
[2025-05-29] MEDS ORDERED: FUROSEMIDE20 MG PO (06:18)
[2025-05-29] MEDS ORDERED: Potassium Chlo20 ME1 PO (06:18)
[2025-05-29] MEDS ORDERED: OMEP20ER PO (06:19)
[2025-05-29] MEDS ORDERED: NYSTOP15 GM TOP (06:22)
--- NOTE | 2025-05-29 06:47 | NUR ---
SHIFT SUMMARY: PT ARRIVED TO UNIT AT 0600. TRANSFERRED TO BED WITH 2 PERSON ASSIST. VSS ON RA. MED REC COMPLETED WITH PATIENT. D5 1/2NS RUNNING @ 75 ML/HR. CHRONIC RICO D/T RETENTION. DRAINING TO GRAVITY. URINE IS BRIGHT RED. PT STATES NORMAL WHEN RICO IS CHANGED. WILL CONTINUE PLAN OF CARE TILL REPORT GIVEN TO DAY SHIFT NURSE.
[2025-05-29 08:28] VITALS: BP 135/76
--- NOTE | 2025-05-29 08:47 | NUR ---
AM NOTE this rn assumed care at 0700. vital signs stab;le. tele sinus rhythm 90s. patient is alert and oriented x4. neuro is intact. perrla. patient denies shortness of breath, pain, or chest pain/pressure. patient lung sounds clear. patient has reddness to bottom that is blanchable and this rn educated the pateint on pressure sore prevention since patient is getting a wheelchair for home and isnt as active. patient verbailized understanding and used teach back method. patient has diabetic ulcer on right outer foot and picture in chart. plan to get wound care orders from wound care center. see admit shift assessment. md benites in room and discussing low blood sugar and plan to stop home diabetic medication. md benites put the fluids on standby and recheck sugar in two hours. if patient sugars stablizes plan to go home this afternoon. patient agrees with this plan.
[2025-05-29] MEDS ORDERED: Enoxaparin 40 MG/0.4 ML SYR SC SCH (09:00)
[2025-05-29 13:26] VITALS: BP 126/73
--- NOTE | 2025-05-29 17:10 | NUR ---
Pt. is awake in bed and welcomes my visit. Pt. is pleasant. Spouse is present. Facilitated a life reveiw and listened with interest and empathy. Pt. verbalized details about his diagnosis, as well as an expectation to be discharged home soon. Spouse displays evidence of being supportive. prayed with the pt. Pt. verbalized gratitude for the spiritual care visit.
[2025-05-29 17:20] VITALS: BP 133/71
--- NOTE | 2025-05-29 17:24 | NUR ---
DISCHARGE NOTE this rn went over medications to stop, follow up appointments and how to take blood sugar checks. patient is provided with a hard script to get require materials. patient and patient significant other verbalized understanding. patient vital sings stable. patient is in no distrress when leaving. patientleft with all belongings
== END 2025-05-29 17:30 | disposition home or self-care (01) ==
LOC: ER 03:21 → PCU 03:22
PROVIDERS: Emergency Medicine; ADMIT Student in an Organized Health Care Education/Training Program
DX: E11.649 Type 2 diabetes mellitus with hypoglycemia without coma (principal); E11.621 Type 2 diabetes mellitus with foot ulcer; R31.9 Hematuria, unspecified; U07.1 COVID-19; E11.40 Type 2 diabetes mellitus with diabetic neuropathy, unspecified; E11.51 Type 2 diabetes mellitus with diabetic peripheral angiopathy without gangrene; I25.10 Atherosclerotic heart disease of native coronary artery without angina pectoris; I50.9 Heart failure, unspecified; E78.5 Hyperlipidemia, unspecified; K21.9 Gastro-esophageal reflux disease without esophagitis; Z95.1 Presence of aortocoronary bypass graft; Z79.82 Long term (current) use of aspirin; Z79.84 Long term (current) use of oral hypoglycemic drugs; Z79.899 Other long term (current) drug therapy; Z76.0 Encounter for issue of repeat prescription
CPT/HCPCS: 51702; 70450; 70496; 70498; 71045; 80053; 80320; 81001; 82947; 83605; 83735; 83880; 84443; 84484; 85025; 87040; 87077; 87086; 87186; 87637; 93005; 93010; 96361; 96374; 99285-25; G0378; J7030; J7042; Q9967

== ENCOUNTER 2025-07-03 02:20 | Day surgery (SDC) | payer OTHER ==
[~2025-07-03 02:20] MED LIST changes: +OMEP20ER PO; +Potassium Chlo20 ME1 PO
[2025-07-03] MEDS ORDERED: Lidocaine HCl 4% Cream 5 GM ONE (13:44)
== END 2025-07-03 23:00 | disposition home or self-care (01) ==
LOC: WOUND 02:20
DX: E11.621 Type 2 diabetes mellitus with foot ulcer (principal); L97.515 Non-pressure chronic ulcer of other part of right foot with muscle involvement without evidence of necrosis; E11.65 Type 2 diabetes mellitus with hyperglycemia; E11.40 Type 2 diabetes mellitus with diabetic neuropathy, unspecified; I25.10 Atherosclerotic heart disease of native coronary artery without angina pectoris; Z79.84 Long term (current) use of oral hypoglycemic drugs
CPT/HCPCS: A9270; G0463

== ENCOUNTER 2025-07-11 03:34 | Day surgery (SDC) | payer OTHER ==
[2025-07-11] MEDS ORDERED: Lidocaine HCl 4% Cream 5 GM ONE (10:45)
== END 2025-07-11 23:34 | disposition home or self-care (01) ==
LOC: WOUND 03:34
DX: E11.621 Type 2 diabetes mellitus with foot ulcer (principal); L97.513 Non-pressure chronic ulcer of other part of right foot with necrosis of muscle; E11.42 Type 2 diabetes mellitus with diabetic polyneuropathy; I25.10 Atherosclerotic heart disease of native coronary artery without angina pectoris
CPT/HCPCS: A9270

== ENCOUNTER 2025-07-17 00:49 | Day surgery (SDC) | payer OTHER ==
[2025-07-17] MEDS ORDERED: Lidocaine HCl 4% Cream 5 GM ONE (13:57)
== END 2025-07-17 23:00 | disposition home or self-care (01) ==
LOC: WOUND 00:49
DX: E11.621 Type 2 diabetes mellitus with foot ulcer (principal); L97.516 Non-pressure chronic ulcer of other part of right foot with bone involvement without evidence of necrosis
CPT/HCPCS: A9270

== ENCOUNTER 2025-07-23 02:09 | Day surgery (SDC) | payer OTHER ==
[2025-07-23] MEDS ORDERED: Lidocaine HCl 4% Cream 5 GM ONE (13:55)
== END 2025-07-23 23:00 | disposition home or self-care (01) ==
LOC: WOUND 02:09
DX: E11.621 Type 2 diabetes mellitus with foot ulcer (principal); L97.516 Non-pressure chronic ulcer of other part of right foot with bone involvement without evidence of necrosis; E11.40 Type 2 diabetes mellitus with diabetic neuropathy, unspecified; I25.10 Atherosclerotic heart disease of native coronary artery without angina pectoris
CPT/HCPCS: A6196; A9270; G0463

== ENCOUNTER 2025-08-15 10:39 | Day surgery (SDC) | payer OTHER ==
[2025-08-15] MEDS ORDERED: Lidocaine HCl 4% Cream 5 GM ONE (13:43)
== END 2025-08-15 23:00 | disposition home or self-care (01) ==
LOC: WOUND 10:39
DX: E11.621 Type 2 diabetes mellitus with foot ulcer (principal); L97.516 Non-pressure chronic ulcer of other part of right foot with bone involvement without evidence of necrosis; E11.40 Type 2 diabetes mellitus with diabetic neuropathy, unspecified; I25.10 Atherosclerotic heart disease of native coronary artery without angina pectoris
CPT/HCPCS: A6196; A9270; G0463

== ENCOUNTER 2025-08-27 00:41 | Day surgery (SDC) | payer OTHER ==
[2025-08-27] MEDS ORDERED: Lidocaine HCl 4% Cream 5 GM ONE (15:31)
== END 2025-08-27 23:00 | disposition home or self-care (01) ==
LOC: WOUND 00:41
DX: E11.621 Type 2 diabetes mellitus with foot ulcer (principal); L97.516 Non-pressure chronic ulcer of other part of right foot with bone involvement without evidence of necrosis; I25.10 Atherosclerotic heart disease of native coronary artery without angina pectoris; E11.40 Type 2 diabetes mellitus with diabetic neuropathy, unspecified
CPT/HCPCS: A6196; A9270; G0463

== ENCOUNTER 2025-09-10 00:52 | Day surgery (SDC) | payer OTHER ==
[2025-09-10] MEDS ORDERED: Lidocaine HCl 4% Cream 5 GM ONE (14:43)
== END 2025-09-10 23:00 | disposition home or self-care (01) ==
LOC: WOUND 00:52
DX: E11.621 Type 2 diabetes mellitus with foot ulcer (principal); L97.516 Non-pressure chronic ulcer of other part of right foot with bone involvement without evidence of necrosis; E11.40 Type 2 diabetes mellitus with diabetic neuropathy, unspecified; I25.10 Atherosclerotic heart disease of native coronary artery without angina pectoris
CPT/HCPCS: A6196; A9270; G0463

== ENCOUNTER 2025-10-15 00:21 | Day surgery (SDC) | payer OTHER ==
[2025-10-15] MEDS ORDERED: Lidocaine HCl 4% Cream 5 GM ONE (11:12)
== END 2025-10-15 23:28 | disposition home or self-care (01) ==
LOC: WOUND 00:21
DX: E11.621 Type 2 diabetes mellitus with foot ulcer (principal); L97.513 Non-pressure chronic ulcer of other part of right foot with necrosis of muscle; E11.40 Type 2 diabetes mellitus with diabetic neuropathy, unspecified; I25.10 Atherosclerotic heart disease of native coronary artery without angina pectoris; Z79.899 Other long term (current) drug therapy
CPT/HCPCS: A6196; A6213; A9270; G0463

== ENCOUNTER 2025-11-12 08:02 | Day surgery (SDC) | payer OTHER | END 2025-11-12 23:00 | disposition home or self-care (01) | LOC: WOUND 08:02 | DX: E11.621 Type 2 diabetes mellitus with foot ulcer (principal); L97.513 Non-pressure chronic ulcer of other part of right foot with necrosis of muscle; E11.40 Type 2 diabetes mellitus with diabetic neuropathy, unspecified; E11.51 Type 2 diabetes mellitus with diabetic peripheral angiopathy without gangrene; I25.10 Atherosclerotic heart disease of native coronary artery without angina pectoris; D64.9 Anemia, unspecified; Z79.899 Other long term (current) drug therapy | CPT/HCPCS: A6196; A6213; G0463 ==